=== PATIENT | male | born 1935 | race Caucasian/White ===

== ENCOUNTER 2022-12-22 17:44 | Observation (INO) | payer OTHER ==
--- NOTE | 2022-12-22 17:50 | ERPHSYRPT ---
- History of Present Illness Time Seen by Provider: 12/22/22 17:50 Source: patient, family (Independent history obtained from the patient's spouse) Exam Limitations: no limitations Physician History: This is an 87-year-old white male patient who typically receives his medical care at [facility] under freight car cleaner Dr. Gtz however, he did not want the long wait that he usually has at that facility. The patient and the spouse states they have not been to our emergency department in many years. He presents with increasing shortness of breath over the last week and worse in the last 2 to 3 days. Patient's spouse states that the patient gained 9 pounds since 12/11/2022. Patient's spouse did contact the freight car cleaner office cardiac sonographer and because of the low oxygen saturation levels of mid 80s on room air, the patient's spouse was told to bring the patient to the emergency room. The patient did not want to come. He does admit though that when he is lying still and flat he is not so short of breath. However if he is up and ambulating even 20 feet he feels very short of breath and has to stop. He denies chest pain. He has no pain of any kind per his report. He has not had a fever. He has a mild cough present. Patient and spouse state that he used to be on diuretics (hydrochlorothiazide). However, there was some renal issues that prompted his physicians to stop that medication. Patient does have a history of atrial fibrillation, hyperlipidemia, gastroesophageal reflux disease, COPD, hypertension, anxiety, arthritis, mild dementia and coronary disease (cardiac stents), and he is on Xarelto. Timing/Duration: week(s) (1 week), worse (Worse in the last 2-3 days) Severity of Dyspnea-Max: moderate (With exertion) Severity of Dyspnea-Current: mild (Lying flat) Possible Cause: occasional episodes Modifying Factors: Improves With: exertion (Worsens), lying down (Improves), oxygen (Improves) Associated Symptoms: No chest pain/discomfort Allergies/Adverse Reactions: hydromorphone Allergy (Severe, Verified 12/22/22 17:50) atorvastatin [From Lipitor] Allergy (Verified 12/22/22 17:50) Home Medications: Aspirin EC 81 mg [Ecotrin 81 mg] 81 mg PO DAILY 02/02/13 [History] Famotidine [Pepcid] 40 mg PO HS 02/02/13 [History] Magnesium Oxide 400 mg [Mag-Ox 400] 400 mg PO BID 02/02/13 [History] Omeprazole [Prilosec] 40 mg PO DAILY 02/02/13 [History] Buspirone HCl 5 mg [Buspar 5 mg] 10 mg PO BID 02/03/13 [History] Fluocinonide/Emollient Base [Fluocinonide-Emol 0.05% Cream] 1 applic TOP DAILY PRN PRN 02/03/13 [History] Amlodipine Besylate [Norvasc] 1 tab PO DAILY 12/22/22 [History] Carvedilol [Coreg ] 1 tab PO BID 12/22/22 [History] Diclofenac Sodium [Voltaren Arthritis Pain] 2 g TOP QID 12/22/22 [History] Donepezil HCl 10 mg [Aricept 10 MG] 1 tab PO DAILY 12/22/22 [History] Furosemide [Lasix] 1 tab PO DAILY 12/22/22 [History] Isosorbide Mononitrate 60 mg [Imdur 60MG] 1 tab PO DAILY 12/22/22 [History] Lovastatin 1 tab PO HS 12/22/22 [History] Nitroglycerin 0.4 mg Tablet [Nitrostat 0.4 MG Tablet] 1 tab PO Q5MIN PRN MR X 3 PRN 12/22/22 [History] Rivaroxaban [Xarelto] 1 tab PO EVENING MEAL 12/22/22 [History] Tamsulosin HCl 0.4 mg [Flomax 0.4 MG] 1 cap PO DAILY 12/22/22 [History] Hx Influenza Vaccination/Date Given: Yes Hx Pneumococcal Vaccination/Date Given: Yes Travel Risk - International Travel Have you traveled outside of the country in past 3 weeks: No - Coronavirus Screening Are you exhibiting any of the following symptoms?: Yes Symptoms: Cough: New Onset, Shortness of Breath Close contact with a COVID-19 positive Pt in past 14-21 Days: No - Review of Systems Constitutional: No Symptoms Eyes: No Symptoms Ears, Nose, & Throat: No Symptoms Respiratory: Cough, Dyspnea on Exertion (BROWN) Cardiac: No Symptoms, No Chest Pain Abdominal/Gastrointestinal: No Symptoms Genitourinary Symptoms: No Symptoms Musculoskeletal: No Symptoms Skin: No Symptoms Neurological: No Symptoms Psychological: No Symptoms Endocrine: No Symptoms Hematologic/Lymphatic: No Symptoms Immunological/Allergic: No Symptoms All Other Systems: Reviewed and Negative - Past Medical History Pertinent Past Medical History: Yes Neurological History: No Pertinent History ENT History: Cataracts Cardiac History: Hypertension Respiratory History: No Pertinent History Endocrine Medical History: No Pertinent History Musculoskeletal History: Osteoarthritis GI Medical History: Diverticulosis, GERD History: No Pertinent History Psycho-Social History: Depression Male Reproductive Disorders: Prostate Problems Other Medical History: Watching kidney function due to changes in medication. See chart for history - Past Surgical History Past Surgical History: Yes Neuro Surgical History: No Pertinent History Cardiac: Cardiac Catheterization, Cardiac Stent Respiratory: No Pertinent History Gastrointestinal: Appendectomy, Cholecystectomy Genitourinary: No Pertinent History Musculoskeletal: Orthopedic Surgery Male Surgical History: No Pertinent History Other Surgical History: EGD, COlonoscopy, Bilateral Knee replacement, Back Surgery x2. R carpal tunnel repair, R shoulder repair, R hand trigger finger. - Social History Smoking Status: Former smoker Exposure to second hand smoke: No Drug Use: none - Nursing Vital Signs Nursing Vital Signs: Initial Vital Signs Temperature 97.8 F 12/22/22 17:52 Pulse Rate 72 12/22/22 17:52 Respiratory Rate 21 12/22/22 17:52 Blood Pressure 128/64 12/22/22 17:52 O2 Sat by Pulse Oximetry 95 12/22/22 17:52 Pain Scale Pain Intensity 0 - Physical Exam General Appearance: no apparent distress, alert, anxiety Eye Exam: PERRL/EOMI, eyes nml inspection Ears, Nose, Throat Exam: hearing grossly normal, normal ENT inspection, normal pharynx Neck Exam: normal inspection, non-tender, supple, full range of motion Respiratory Exam: normal breath sounds, lungs clear, airway intact, No chest tenderness, No respiratory distress Cardiovascular/Chest Exam: normal heart sounds, regular rate/rhythm Abdominal/Gastrointestinal Exam: soft, normal bowel sounds, No tenderness Rectal Exam: not done Extremity Exam: non-tender, normal range of motion, normal inspection Neurologic Exam: alert, oriented x 3, cooperative, box fabricator II-XII nml as tested, normal mood/affect, nml cerebellar function, nml station & gait, sensation nml Skin Exam: normal color, warm, dry Lymphatic Exam: No adenopathy SpO2 Interpretation: borderline oxygenation O2 Delivery: Room Air - Course Nursing assessment & vital signs reviewed: Yes EKG Interpreted by Me: RATE (74), A-fib, Left Bundle Branch Block, Other (PVCs. No acute ischemic changes on today's twelve-lead EKG.) Ordered Tests: Active Orders 24 hr Category Date Time Status EKG-ER Only STAT Care 12/22/22 18:57 Active IV Insertion STAT Care 12/22/22 18:57 Active Pulse Oximetry (ED) STAT Care 12/22/22 18:57 Active CHEST 1 VIEW (PORTABLE) Stat Exams 12/22/22 19:09 Completed CBC W DIFF Stat Lab 12/22/22 17:55 Completed CMP Stat Lab 12/22/22 17:55 Completed NT PRO BNPII Stat Lab 12/22/22 17:55 Completed TROPONIN Q4H Lab 12/22/22 17:55 Completed TROPONIN Q4H Lab 12/22/22 22:03 Received TROPONIN Q4H Lab 12/23/22 03:00 Ordered Transfer Order Routine Transfer 12/22/22 Ordered Medication Summary Discontinued Medications Generic Name Dose Route Start Last Admin Trade Name Freq PRN Reason Stop Dose Admin Furosemide 40 mg 12/22/22 20:23 12/22/22 20:28 Furosemide 40 Mg/4 Ml Vial IV 12/22/22 20:24 40 mg STAT ONE Administration Furosemide Confirm 12/22/22 20:27 Furosemide 40 Mg/4 Ml Vial Administered 12/22/22 20:28 Dose 40 mg .ROUTE .STK-MED ONE Ceftriaxone Sodium/Dextrose 1 g in 50 mls @ 100 mls/hr 12/22/22 20:22 12/22/22 20:58 Rocephin 1 Gm-D5w 50 Ml Bag IV 12/22/22 20:51 Infused STAT STA Infusion Ceftriaxone Sodium/Dextrose Confirm 12/22/22 20:27 Rocephin 1 Gm-D5w 50 Ml Bag Administered 12/22/22 20:28 Dose 1 g in 50 mls @ ud IV .STK-MED ONE Lab/Rad Data: Laboratory Result Diagrams 12/22/22 17:55 12/22/22 17:55 Laboratory Results 12/22/22 12/22/22 12/22/22 Range/Units 19:36 17:55 17:55 WBC (4.0-10.5) x10^3/uL RBC (4.1-5.6) x10^6/uL Hgb (12.5-18.0) g/dL Hct (42-50) % MCV (78-100) fL MCH (26-32) pg MCHC (32-36) g/dL RDW (11.5-14.0) % Plt Count (150-450) x10^3/uL MPV (7.5-11.0) fL Gran % (36.0-66.0) % Immature Gran % (Auto) (0.00-0.4) % Nucleat RBC Rel Count (0.00-0.1) % Eos # (Auto) (0-0.5) x10^3/uL Immature Gran # (Auto) (0.00-0.03) x10^3u/L Absolute Lymphs (auto) (1.0-4.6) x10^3/uL Absolute Monos (auto) (0.0-1.3) x10^3/uL Absolute Nucleated RBC (0.00-0.01) x10^3u/L Lymphocytes % (24.0-44.0) % Monocytes % (0.0-12.0) % Eosinophils % (0.00-5.0) % Basophils % (0.0-0.4) % Absolute Granulocytes (1.4-6.9) x10^3/uL Basophils # (0-0.4) x10^3/uL Sodium 140 (137-145) mmol/L Potassium 4.0 (3.5-5.1) mmol/L Chloride 106 (98-107) mmol/L Carbon Dioxide 26 (22-30) mmol/L Anion Gap 12.8 (5-15) MEQ/L BUN 28 H (9-20) mg/dL Creatinine 1.81 H (0.66-1.25) mg/dL Estimated GFR 37.8 ML/MIN Glucose 112 H (74-106) mg/dL Calcium 8.4 (8.4-10.2) mg/dL Total Bilirubin 1.30 (0.2-1.3) mg/dL AST 31 (17-59) U/L ALT 25 (0-50) U/L Alkaline Phosphatase 82 (38-126) U/L Troponin I 0.105 H* (0.000-0.034) ng/mL NT-Pro-B Natriuret Pep 52108 (<300) pg/mL Serum Total Protein 6.1 L (6.3-8.2) g/dL Albumin 3.4 L (3.5-5.0) g/dL Influenza Type A Ag NEGATIVE (NEGATIVE) Influenza Type B Ag NEGATIVE (NEGATIVE) RSV (PCR) NEGATIVE (NEGATIVE) SARS-CoV-2 (PCR) NEGATIVE (NEGATIVE) 12/22/22 Range/Units 17:55 WBC 4.5 (4.0-10.5) x10^3/uL RBC 2.88 L (4.1-5.6) x10^6/uL Hgb 8.6 L (12.5-18.0) g/dL Hct 27.5 L (42-50) % MCV 95.5 (78-100) fL MCH 29.9 (26-32) pg MCHC 31.3 L (32-36) g/dL RDW 14.4 H (11.5-14.0) % Plt Count 234 (150-450) x10^3/uL MPV 9.4 (7.5-11.0) fL Gran % 63.7 (36.0-66.0) % Immature Gran % (Auto) 0.4 (0.00-0.4) % Nucleat RBC Rel Count 0.0 (0.00-0.1) % Eos # (Auto) 0.10 (0-0.5) x10^3/uL Immature Gran # (Auto) 0.02 (0.00-0.03) x10^3u/L Absolute Lymphs (auto) 0.90 L (1.0-4.6) x10^3/uL Absolute Monos (auto) 0.57 (0.0-1.3) x10^3/uL Absolute Nucleated RBC 0.00 (0.00-0.01) x10^3u/L Lymphocytes % 20.2 L (24.0-44.0) % Monocytes % 12.8 H (0.0-12.0) % Eosinophils % 2.2 (0.00-5.0) % Basophils % 0.7 (0.0-0.4) % Absolute Granulocytes 2.83 (1.4-6.9) x10^3/uL Basophils # 0.03 (0-0.4) x10^3/uL Sodium (137-145) mmol/L Potassium (3.5-5.1) mmol/L Chloride (98-107) mmol/L Carbon Dioxide (22-30) mmol/L Anion Gap (5-15) MEQ/L BUN (9-20) mg/dL Creatinine (0.66-1.25) mg/dL Estimated GFR ML/MIN Glucose (74-106) mg/dL Calcium (8.4-10.2) mg/dL Total Bilirubin (0.2-1.3) mg/dL AST (17-59) U/L ALT (0-50) U/L Alkaline Phosphatase (38-126) U/L Troponin I (0.000-0.034) ng/mL NT-Pro-B Natriuret Pep (<300) pg/mL Serum Total Protein (6.3-8.2) g/dL Albumin (3.5-5.0) g/dL Influenza Type A Ag (NEGATIVE) Influenza Type B Ag (NEGATIVE) RSV (PCR) (NEGATIVE) SARS-CoV-2 (PCR) (NEGATIVE) - Progress Progress: improved, re-examined Air Movement: fair Progress Note: 12/22/22 19:36 Chest x-ray was interpreted by me. Patient appears to have bibasilar fluid. There is a small right pleural effusion and a question of fluid versus small infiltrate left base. This patient's medical issue is 1 of high complexity. The level complexity in the work-up performed is based on review of the patient's past medical history, review of the patient's medication list, review the patient's drug allergy list, history of present illness and physical findings on examination. The work-up includes chest x-ray, twelve-lead EKG, BNP, troponin level, CMP and CBC as well as evaluation by respiratory therapy. 12/22/22 21:58 I reviewed the results and interpreted the results of the patient's work-up. The patient has evidence of CHF with decompensation. He became slightly hypoxic during his stay in the emergency room but responded with supplemental oxygen via nasal cannula. The patient has no chest pain. He has elevated troponin levels. Family prefers to be at [facility] for their care. Patient's freight car cleaner is there. I did contact Dr. Murphy, the hospitalist on-call at [facility]. I reviewed the patient history, the work-up performed and the results. He accepts the patient in transfer when a bed becomes available. I did speak with the transfer center and they explained to me that there are no cardiac beds available at this time. They will call us at 10 AM on 12/23/2022 to update us on bed availability. In the interim, I will contact the telehospitalist on at this time and see if they we can place him in observation so he can be monitored on telemetry and telemetry bed becomes available at [facility] for further evaluation and management and higher level care with cardiology intervention. 12/22/22 22:28 I reviewed the patient with our telehospitalist Dr. Andrade. I reviewed the p atient history, physical findings, work-up results chest x-ray results and twelve-lead EKG results. Dr. Andrade agrees to place the patient in observation and diuresis patient. We will repeat labs in the morning. Tomorrow, they will decide whether to keep the patient here and continue care or transfer to [facility] if the bed is available. Blood Culture(s) Obtained: Yes Antibiotics given: Yes Counseled pt/family regarding: lab results, diagnosis, rad results Medical Desision Making - Independent Historian Additional History obtained from: Spouse - Discussion of managment Care discussed with:: hospitalist (At [facility], Dr. Murphy hospitalist on- call this evening) Reviewed:: Test results, Need for additional workup - Diagnostic Testing Diagnostic test were ordered, analyzed, and reviewed by me: Yes Radiological Interpretation: Interpreted by me, Reviewed by me, Teleradiologist Report - Risk of complications The pt has a high risk of morbidity or mortality based on: Decision regarding hospitilization or escalation of hosp level of care - Departure Departure Disposition: Observation Clinical Impression: Decompensated heart failure, Acute on chronic renal failure, Hypoxia, Elevated troponin Condition: Fair Critical Care Time: Yes Critical Care Time(excluding separately billable procedures): Critical 30-74 mins (45) Referrals: MARYAM HARRIS MD [Primary Care Provider] - Follow up/PCP as directed
[2022-12-22 19:04] LABS: Absolute Neutrophil Ct (ANC) 2.83 x10^3/uL (1.4-6.9); BASOPHIL % 0.7 % (0.0-0.4); Basophil (Absolute #) 0.03 x10^3/uL (0-0.4); Eosinophil % 2.2 % (0.00-5.0); Hematocrit 27.5 % (42-50); Hemoglobin 8.6 g/dL (12.5-18.0); IMMATURE GRAN # 0.02 x10^3u/L (0.00-0.03); IMMATURE GRAN % 0.4 % (0.00-0.4); Lymphocytes % 20.2 % (24.0-44.0); Mean Cell Volume 95.5 fL (78-100); Mean Corpuscular Hemoglobin 29.9 pg (26-32); Mean Corpuscular Hgb Concent. 31.3 g/dL (32-36); Mean Platelet Volume 9.4 fL (7.5-11.0); Monocyte (Absolute #) 0.57 x10^3/uL (0.0-1.3); Monocytes % 12.8 % (0.0-12.0); Neutrophil % 63.7 % (36.0-66.0); Platelet Count 234 x10^3/uL (150-450); Red Blood Count 2.88 x10^6/uL (4.1-5.6); Red Cell Distribution Width 14.4 % (11.5-14.0); White Blood Count 4.5 x10^3/uL (4.0-10.5)
[2022-12-22 19:28] LABS: ALBUMIN 3.4 g/dL (3.5-5.0); ANION GAP 12.8 MEQ/L (5-15); BILIRUBIN,TOTAL 1.3 mg/dL (0.2-1.3); Calcium 8.4 mg/dL (8.4-10.2); Creatinine 1 1.81 mg/dL (0.66-1.25); EST GLOMERULAR FILTRATION RATE 37.8 ML/MIN; Total Protein 6.1 g/dL (6.3-8.2)
[2022-12-22 20:11] LABS: TROPONIN 0.105 ng/mL (0.000-0.034)
[2022-12-22 20:14] LABS: INFLUENZA A NEGATIVE (NEGATIVE); INFLUENZA B NEGATIVE (NEGATIVE); RESPIRATORY SYNCTIAL VIRUS NEGATIVE (NEGATIVE); SARS-CoV-2 Xpert Express NEGATIVE (NEGATIVE)
[2022-12-22] MEDS ORDERED: ROCEPHIN 1 Gm-D5w 50 ml Bag** 1 G/50 ML IVPB IV STA (20:22)
[2022-12-22] MEDS ORDERED: Lasix 40 MG/4 ML IV ONE (20:23)
[2022-12-22] MEDS ORDERED: Lasix 40 MG/4 ML ONE (20:27)
[2022-12-22] MEDS ORDERED: ROCEPHIN 1 Gm-D5w 50 ml Bag** 1 G/50 ML IVPB IV ONE (20:27)
--- NOTE | 2022-12-22 21:06 | XRAY ---
Indication: Short of breath. Comparison: None Portable apical lordotic chest demonstrates cardiomegaly, pulmonary edema, and small bibasilar effusions favoring cardiac decompensation/CHF. Superimposed pneumonia not completely excluded. Bony thorax intact with osteopenia and degenerative changes.
[2022-12-22] MEDS ORDERED: Zofran 4 MG/2 ML VIAL IV PRN (22:45)
[2022-12-22] MEDS ORDERED: TYLENOL 325 MG PO PRN (22:45)
[2022-12-22] MEDS ORDERED: [UNRECOGNIZED DRUG - OTHER] TOP PRN (23:04)
[2022-12-22] MEDS ORDERED: FLUOCINONIDE TOP PRN (23:04)
--- NOTE | 2022-12-22 23:23 | PCM.HP ---
History of Present Illness - Chief Complaint Chief Complaint: Shortness of breath History of Present Illness: is a 87 year old male with CAD, heart failure, COPD, atrial fibrillation who presents with one month of progressive dyspnea. He has shortness of breath with exertion and noticed it is worse laying down as well. No chest pain. Mild edema in the legs as well. He has had admissions in the past for CHF exacerbations but his last was over 6 months ago. Denies other symptoms such as nausea, vomiting, diarrhea, fevers. - Review of Systems Constitutional: No Fever, No Chills Eyes: No Symptoms Ears, Nose, & Throat: No Symptoms Respiratory: Short Of Breath, No Cough Cardiac: Edema, Orthopnea, No Chest Pain, No Syncope Abdominal/Gastrointestinal: No Abdominal Pain, No Nausea, No Vomiting, No Diarrhea Genitourinary Symptoms: No Dysuria Musculoskeletal: No Back Pain, No Neck Pain Skin: No Rash Neurological: No Dizziness, No Focal Weakness, No Sensory Changes Psychological: No Symptoms Endocrine: No Symptoms Hematologic/Lymphatic: No Symptoms Immunological/Allergic: No Symptoms Medications & Allergies Home Medications: Home Medication List Aspirin EC 81 mg [Ecotrin 81 mg] 81 mg PO DAILY 02/02/13 [History Confirmed 12/22/22] Famotidine [Pepcid] 40 mg PO HS 02/02/13 [History Confirmed 12/22/22] Magnesium Oxide 400 mg [Mag-Ox 400] 400 mg PO BID 02/02/13 [History Confirmed 12/22/22] Omeprazole [Prilosec] 40 mg PO DAILY 02/02/13 [History Confirmed 12/22/22] Buspirone HCl 5 mg [Buspar 5 mg] 10 mg PO BID 02/03/13 [History Confirmed 12/22/22] Fluocinonide/Emollient Base [Fluocinonide-Emol 0.05% Cream] 1 applic TOP DAILY PRN PRN 02/03/13 [History Confirmed 12/22/22] Amlodipine Besylate [Norvasc] 1 tab PO DAILY 12/22/22 [History Confirmed 12/22/22] Carvedilol [Coreg ] 1 tab PO BID 12/22/22 [History Confirmed 12/22/22] Diclofenac Sodium [Voltaren Arthritis Pain] 2 g TOP QID 12/22/22 [History Confirmed 12/22/22] Donepezil HCl 10 mg [Aricept 10 MG] 1 tab PO DAILY 12/22/22 [History Confirmed 12/22/22] Furosemide [Lasix] 1 tab PO DAILY 12/22/22 [History Confirmed 12/22/22] Isosorbide Mononitrate 60 mg [Imdur 60MG] 1 tab PO DAILY 12/22/22 [History Confirmed 12/22/22] Lovastatin 1 tab PO HS 12/22/22 [History Confirmed 12/22/22] Nitroglycerin 0.4 mg Tablet [Nitrostat 0.4 MG Tablet] 1 tab PO Q5MIN PRN MR X 3 PRN 12/22/22 [History Confirmed 12/22/22] Rivaroxaban [Xarelto] 1 tab PO EVENING MEAL 12/22/22 [History Confirmed 12/22/22] Tamsulosin HCl 0.4 mg [Flomax 0.4 MG] 1 cap PO DAILY 12/22/22 [History Confirmed 12/22/22] Allergies/Adverse Reactions: Allergies Allergy/AdvReac Type Severity Reaction Status Date / Time hydromorphone Allergy Severe Verified 12/22/22 17:50 atorvastatin [From Lipitor] Allergy Verified 12/22/22 17:50 - Past Medical History Past Medical History: Yes Neurological History: No Pertinent History ENT History: Cataracts Cardiac History: Hypertension Respiratory History: No Pertinent History Endocrine Medical History: No Pertinent History Musculoskelatal History: Osteoarthritis GI Medical History: Diverticulosis, GERD History: No Pertinent History Pyscho-Social History: Depression Male Reproductive Disorders: Prostate Problems Comment: Watching kidney function due to changes in medication. See chart for history - Past Surgical History Past Surgical History: Yes Neuro Surgical History: No Pertinent History Cardiac History: Cardiac Catheterization, Cardiac Stent Respiratory Surgery: No Pertinent History GI Surgical History: Appendectomy, Cholecystectomy Genitourinary Surgical Hx: No Pertinent History Musculskeletal Surgical Hx: Orthopedic Surgery Male Surgical History: No Pertinent History Other Surgical History: EGD, COlonoscopy, Bilateral Knee replacement, Back Surgery x2. R carpal tunnel repair, R shoulder repair, R hand trigger finger. - Social History Smoking Status: Former smoker Exposure to second hand smoke: No Alcohol: None Drug Use: none - Physical Exam Vital Signs: Vital Signs - 24 hr Temp Pulse Resp BP BP Pulse Ox 12/22/22 22:00 72 23 131/78 94 L 12/22/22 21:31 73 20 155/78 94 L 12/22/22 21:00 68 19 139/66 93 L 12/22/22 20:30 67 18 140/74 95 12/22/22 20:00 63 18 131/67 95 12/22/22 19:30 65 20 129/68 96 12/22/22 19:16 68 18 125/76 96 12/22/22 19:10 89 L 12/22/22 19:01 63 19 125/78 95 12/22/22 18:30 68 22 114/56 92 L 12/22/22 18:00 68 20 128/64 91 L 12/22/22 17:52 97.8 F 72 21 128/64 95 General Appearance: no apparent distress, alert Neurologic Exam: alert, oriented x 3, cooperative, normal mood/affect, nml cerebellar function, nml station & gait, sensation nml, No motor deficits Eye Exam: PERRL/EOMI, eyes nml inspection Ears, Nose, Throat Exam: normal ENT inspection, TMs normal, pharynx normal, moist mucous membranes Neck Exam: normal inspection, non-tender, supple, full range of motion Respiratory Exam: normal breath sounds, lungs clear, No respiratory distress Cardiovascular Exam: regular rate/rhythm, normal heart sounds, normal peripheral pulses Gastrointestinal/Abdomen Exam: soft, normal bowel sounds, No tenderness, No mass Back Exam: normal inspection, normal range of motion, No CVA tenderness, No vertebral tenderness Extremity Exam: normal inspection, normal range of motion, pelvis stable Skin Exam: normal color, warm, dry, No rash Lymphatic Exam: No adenopathy Results - Labs Lab/Micro Results: Lab Results-Last 24 Hours 12/22/22 12/22/22 12/22/22 Range/Units 17:55 17:55 17:55 WBC 4.5 (4.0-10.5) x10^3/uL RBC 2.88 L (4.1-5.6) x10^6/uL Hgb 8.6 L (12.5-18.0) g/dL Hct 27.5 L (42-50) % MCV 95.5 (78-100) fL MCH 29.9 (26-32) pg MCHC 31.3 L (32-36) g/dL RDW 14.4 H (11.5-14.0) % Plt Count 234 (150-450) x10^3/uL MPV 9.4 (7.5-11.0) fL Gran % 63.7 (36.0-66.0) % Immature Gran % (Auto) 0.4 (0.00-0.4) % Nucleat RBC Rel Count 0.0 (0.00-0.1) % Eos # (Auto) 0.10 (0-0.5) x10^3/uL Immature Gran # (Auto) 0.02 (0.00-0.03) x10^3u/L Absolute Lymphs (auto) 0.90 L (1.0-4.6) x10^3/uL Absolute Monos (auto) 0.57 (0.0-1.3) x10^3/uL Absolute Nucleated RBC 0.00 (0.00-0.01) x10^3u/L Lymphocytes % 20.2 L (24.0-44.0) % Monocytes % 12.8 H (0.0-12.0) % Eosinophils % 2.2 (0.00-5.0) % Basophils % 0.7 (0.0-0.4) % Absolute Granulocytes 2.83 (1.4-6.9) x10^3/uL Basophils # 0.03 (0-0.4) x10^3/uL Sodium 140 (137-145) mmol/L Potassium 4.0 (3.5-5.1) mmol/L Chloride 106 (98-107) mmol/L Carbon Dioxide 26 (22-30) mmol/L Anion Gap 12.8 (5-15) MEQ/L BUN 28 H (9-20) mg/dL Creatinine 1.81 H (0.66-1.25) mg/dL Estimated GFR 37.8 ML/MIN Glucose 112 H (74-106) mg/dL Calcium 8.4 (8.4-10.2) mg/dL Total Bilirubin 1.30 (0.2-1.3) mg/dL AST 31 (17-59) U/L ALT 25 (0-50) U/L Alkaline Phosphatase 82 (38-126) U/L Troponin I 0.105 H* (0.000-0.034) ng/mL NT-Pro-B Natriuret Pep 09237 (<300) pg/mL Serum Total Protein 6.1 L (6.3-8.2) g/dL Albumin 3.4 L (3.5-5.0) g/dL Influenza Type A Ag (NEGATIVE) Influenza Type B Ag (NEGATIVE) RSV (PCR) (NEGATIVE) SARS-CoV-2 (PCR) (NEGATIVE) 12/22/22 12/22/22 Range/Units 19:36 22:03 WBC (4.0-10.5) x10^3/uL RBC (4.1-5.6) x10^6/uL Hgb (12.5-18.0) g/dL Hct (42-50) % MCV (78-100) fL MCH (26-32) pg MCHC (32-36) g/dL RDW (11.5-14.0) % Plt Count (150-450) x10^3/uL MPV (7.5-11.0) fL Gran % (36.0-66.0) % Immature Gran % (Auto) (0.00-0.4) % Nucleat RBC Rel Count (0.00-0.1) % Eos # (Auto) (0-0.5) x10^3/uL Immature Gran # (Auto) (0.00-0.03) x10^3u/L Absolute Lymphs (auto) (1.0-4.6) x10^3/uL Absolute Monos (auto) (0.0-1.3) x10^3/uL Absolute Nucleated RBC (0.00-0.01) x10^3u/L Lymphocytes % (24.0-44.0) % Monocytes % (0.0-12.0) % Eosinophils % (0.00-5.0) % Basophils % (0.0-0.4) % Absolute Granulocytes (1.4-6.9) x10^3/uL Basophils # (0-0.4) x10^3/uL Sodium (137-145) mmol/L Potassium (3.5-5.1) mmol/L Chloride (98-107) mmol/L Carbon Dioxide (22-30) mmol/L Anion Gap (5-15) MEQ/L BUN (9-20) mg/dL Creatinine (0.66-1.25) mg/dL Estimated GFR ML/MIN Glucose (74-106) mg/dL Calcium (8.4-10.2) mg/dL Total Bilirubin (0.2-1.3) mg/dL AST (17-59) U/L ALT (0-50) U/L Alkaline Phosphatase (38-126) U/L Troponin I 0.140 H* (0.000-0.034) ng/mL NT-Pro-B Natriuret Pep (<300) pg/mL Serum Total Protein (6.3-8.2) g/dL Albumin (3.5-5.0) g/dL Influenza Type A Ag NEGATIVE (NEGATIVE) Influenza Type B Ag NEGATIVE (NEGATIVE) RSV (PCR) NEGATIVE (NEGATIVE) SARS-CoV-2 (PCR) NEGATIVE (NEGATIVE) - Radiology Impressions Radiology Exams & Impressions: Radiology Procedures Category Date Time Status CHEST 1 VIEW (PORTABLE) Stat Exams 12/22/22 19:09 Completed - Other Procedures and Tests Respiratory Therapy 12/22/22 22:45 EKG REPEAT IN AM Oxygen Nasal Cannula 2 lpm Respiratory Therapy Consult ONCE Assessment/Plan (1) Decompensated heart failure Current Visit: Yes Status: Acute Assessment & Plan: 1. Lasix 40 mg IV BID 2. [facility] continue home cardiac medications (BB, statin, ASA) Code(s): I50.9 - HEART FAILURE, UNSPECIFIED (2) Hypoxia Current Visit: Yes Status: Acute Assessment & Plan: Likely related to effusion from heart failure. O2 as needed. Diuresis with lasix 40 mg IV BID Code(s): R09.02 - HYPOXEMIA (3) Anemia Current Visit: Yes Status: Acute Assessment & Plan: No baseline. Suspect due to anemia of chronic disease / renal disease. Denies bloody stools or dark stools. - has prior lab work per but went home tonight. Can check in the morning. Code(s): D64.9 - ANEMIA, UNSPECIFIED Telemedicine Encounter - Telemedicine Encounter Telemedicine Encounter: The entirety of this encounter was performed via Telemedicine"
[2022-12-23 04:05] LABS: ALBUMIN 3.5 g/dL (3.5-5.0); BILIRUBIN,TOTAL 1.4 mg/dL (0.2-1.3); Calcium 8.6 mg/dL (8.4-10.2); Creatinine 1 1.75 mg/dL (0.66-1.25); EST GLOMERULAR FILTRATION RATE 39.3 ML/MIN; Potassium 4.2 mmol/L (3.5-5.1); Total Protein 6.1 g/dL (6.3-8.2)
[2022-12-23 05:35] LABS: Absolute Neutrophil Ct (ANC) 4.71 x10^3/uL (1.4-6.9); BASOPHIL % 0.6 % (0.0-0.4); Basophil (Absolute #) 0.04 x10^3/uL (0-0.4); Eosinophil % 1.7 % (0.00-5.0); Eosinophil (Absolute #) 0.11 x10^3/uL (0-0.5); Hematocrit 29.3 % (42-50); Hemoglobin 9.2 g/dL (12.5-18.0); IMMATURE GRAN # 0.02 x10^3u/L (0.00-0.03); IMMATURE GRAN % 0.3 % (0.00-0.4); Lymphocyte (Absolute #) 0.73 x10^3/uL (1.0-4.6); Lymphocytes % 11.6 % (24.0-44.0); Mean Cell Volume 95.1 fL (78-100); Mean Corpuscular Hemoglobin 29.9 pg (26-32); Mean Corpuscular Hgb Concent. 31.4 g/dL (32-36); Mean Platelet Volume 9.7 fL (7.5-11.0); Monocyte (Absolute #) 0.69 x10^3/uL (0.0-1.3); Neutrophil % 74.8 % (36.0-66.0); Platelet Count 263 x10^3/uL (150-450); Red Blood Count 3.08 x10^6/uL (4.1-5.6); Red Cell Distribution Width 14.3 % (11.5-14.0); White Blood Count 6.3 x10^3/uL (4.0-10.5)
--- NOTE | 2022-12-23 05:42 | PCM.NOTE ---
Date and Time: 12/23/22 0534 Subjective Assessment: Mr. Pagan is an 87 year old male with a pmhx of CAD, CHF, COPD, HLD, GERD, Anxiety, dementia, COPD, and AFIB (xarelto/coreg), who presented to ER 12/22/22 with c/o progressive dyspnea with the onset of one month ago with worsening over the past two days and 9lb weight gain, admitted for CHF with decompensation. In ER workup included chest x-ray, twelve-lead EKG, BNP, troponin level, CMP and CBC as well as evaluation by respiratory therapy with findings of decompensated CHF and elevated troponins, acute on chronic renal failure, as well as hypoxia. Patient to be transferred to [place] when a bed is available per pt request as the patient's court stenographer Dr. Madison is there. OBJECTIVE DATA Vital Signs: Vital Signs - 24 hr Temp Pulse Resp BP BP Pulse Ox 12/23/22 05:12 93 L 12/23/22 04:44 90 L 12/22/22 23:21 96.9 F 75 18 143/65 92 L 12/22/22 23:00 84 18 92 L 12/22/22 22:00 72 23 131/78 94 L 12/22/22 21:31 73 20 155/78 94 L 12/22/22 21:00 68 19 139/66 93 L 12/22/22 20:30 67 18 140/74 95 12/22/22 20:00 63 18 131/67 95 12/22/22 19:30 65 20 129/68 96 12/22/22 19:16 68 18 125/76 96 12/22/22 19:10 89 L 12/22/22 19:01 63 19 125/78 95 12/22/22 18:30 68 22 114/56 92 L 12/22/22 18:00 68 20 128/64 91 L 12/22/22 17:52 97.8 F 72 21 128/64 95 Pain Assessment - Last Documented Pain Intensity 0 Intake and Output: Intake & Output 12/20/22 12/21/22 12/22/22 12/23/22 11:59 11:59 11:59 11:59 Output Total 1325 Balance -1325 Weight 83.7 kg Lab Results: Lab Results-Last 24 Hours 12/22/22 12/22/22 12/22/22 Range/Units 17:55 17:55 17:55 WBC 4.5 (4.0-10.5) x10^3/uL RBC 2.88 L (4.1-5.6) x10^6/uL Hgb 8.6 L (12.5-18.0) g/dL Hct 27.5 L (42-50) % MCV 95.5 (78-100) fL MCH 29.9 (26-32) pg MCHC 31.3 L (32-36) g/dL RDW 14.4 H (11.5-14.0) % Plt Count 234 (150-450) x10^3/uL MPV 9.4 (7.5-11.0) fL Gran % 63.7 (36.0-66.0) % Immature Gran % (Auto) 0.4 (0.00-0.4) % Nucleat RBC Rel Count 0.0 (0.00-0.1) % Eos # (Auto) 0.10 (0-0.5) x10^3/uL Immature Gran # (Auto) 0.02 (0.00-0.03) x10^3u/L Absolute Lymphs (auto) 0.90 L (1.0-4.6) x10^3/uL Absolute Monos (auto) 0.57 (0.0-1.3) x10^3/uL Absolute Nucleated RBC 0.00 (0.00-0.01) x10^3u/L Lymphocytes % 20.2 L (24.0-44.0) % Monocytes % 12.8 H (0.0-12.0) % Eosinophils % 2.2 (0.00-5.0) % Basophils % 0.7 (0.0-0.4) % Absolute Granulocytes 2.83 (1.4-6.9) x10^3/uL Basophils # 0.03 (0-0.4) x10^3/uL Sodium 140 (137-145) mmol/L Potassium 4.0 (3.5-5.1) mmol/L Chloride 106 (98-107) mmol/L Carbon Dioxide 26 (22-30) mmol/L Anion Gap 12.8 (5-15) MEQ/L BUN 28 H (9-20) mg/dL Creatinine 1.81 H (0.66-1.25) mg/dL Estimated GFR 37.8 ML/MIN Glucose 112 H (74-106) mg/dL Calcium 8.4 (8.4-10.2) mg/dL Total Bilirubin 1.30 (0.2-1.3) mg/dL AST 31 (17-59) U/L ALT 25 (0-50) U/L Alkaline Phosphatase 82 (38-126) U/L Troponin I 0.105 H* (0.000-0.034) ng/mL NT-Pro-B Natriuret Pep 93063 (<300) pg/mL Serum Total Protein 6.1 L (6.3-8.2) g/dL Albumin 3.4 L (3.5-5.0) g/dL Influenza Type A Ag (NEGATIVE) Influenza Type B Ag (NEGATIVE) RSV (PCR) (NEGATIVE) SARS-CoV-2 (PCR) (NEGATIVE) 12/22/22 12/22/22 12/23/22 Range/Units 19:36 22:03 03:25 WBC (4.0-10.5) x10^3/uL RBC (4.1-5.6) x10^6/uL Hgb (12.5-18.0) g/dL Hct (42-50) % MCV (78-100) fL MCH (26-32) pg MCHC (32-36) g/dL RDW (11.5-14.0) % Plt Count (150-450) x10^3/uL MPV (7.5-11.0) fL Gran % (36.0-66.0) % Immature Gran % (Auto) (0.00-0.4) % Nucleat RBC Rel Count (0.00-0.1) % Eos # (Auto) (0-0.5) x10^3/uL Immature Gran # (Auto) (0.00-0.03) x10^3u/L Absolute Lymphs (auto) (1.0-4.6) x10^3/uL Absolute Monos (auto) (0.0-1.3) x10^3/uL Absolute Nucleated RBC (0.00-0.01) x10^3u/L Lymphocytes % (24.0-44.0) % Monocytes % (0.0-12.0) % Eosinophils % (0.00-5.0) % Basophils % (0.0-0.4) % Absolute Granulocytes (1.4-6.9) x10^3/uL Basophils # (0-0.4) x10^3/uL Sodium (137-145) mmol/L Potassium (3.5-5.1) mmol/L Chloride (98-107) mmol/L Carbon Dioxide (22-30) mmol/L Anion Gap (5-15) MEQ/L BUN (9-20) mg/dL Creatinine (0.66-1.25) mg/dL Estimated GFR ML/MIN Glucose (74-106) mg/dL Calcium (8.4-10.2) mg/dL Total Bilirubin (0.2-1.3) mg/dL AST (17-59) U/L ALT (0-50) U/L Alkaline Phosphatase (38-126) U/L Troponin I 0.140 H* 0.122 H* (0.000-0.034) ng/mL NT-Pro-B Natriuret Pep (<300) pg/mL Serum Total Protein (6.3-8.2) g/dL Albumin (3.5-5.0) g/dL Influenza Type A Ag NEGATIVE (NEGATIVE) Influenza Type B Ag NEGATIVE (NEGATIVE) RSV (PCR) NEGATIVE (NEGATIVE) SARS-CoV-2 (PCR) NEGATIVE (NEGATIVE) 12/23/22 Range/Units 03:25 WBC (4.0-10.5) x10^3/uL RBC (4.1-5.6) x10^6/uL Hgb (12.5-18.0) g/dL Hct (42-50) % MCV (78-100) fL MCH (26-32) pg MCHC (32-36) g/dL RDW (11.5-14.0) % Plt Count (150-450) x10^3/uL MPV (7.5-11.0) fL Gran % (36.0-66.0) % Immature Gran % (Auto) (0.00-0.4) % Nucleat RBC Rel Count (0.00-0.1) % Eos # (Auto) (0-0.5) x10^3/uL Immature Gran # (Auto) (0.00-0.03) x10^3u/L Absolute Lymphs (auto) (1.0-4.6) x10^3/uL Absolute Monos (auto) (0.0-1.3) x10^3/uL Absolute Nucleated RBC (0.00-0.01) x10^3u/L Lymphocytes % (24.0-44.0) % Monocytes % (0.0-12.0) % Eosinophils % (0.00-5.0) % Basophils % (0.0-0.4) % Absolute Granulocytes (1.4-6.9) x10^3/uL Basophils # (0-0.4) x10^3/uL Sodium 141 (137-145) mmol/L Potassium 4.2 (3.5-5.1) mmol/L Chloride 102 (98-107) mmol/L Carbon Dioxide 28 (22-30) mmol/L Anion Gap 15.0 (5-15) MEQ/L BUN 27 H (9-20) mg/dL Creatinine 1.75 H (0.66-1.25) mg/dL Estimated GFR 39.3 ML/MIN Glucose 125 H (74-106) mg/dL Calcium 8.6 (8.4-10.2) mg/dL Total Bilirubin 1.40 H (0.2-1.3) mg/dL AST 28 (17-59) U/L ALT 25 (0-50) U/L Alkaline Phosphatase 93 (38-126) U/L Troponin I (0.000-0.034) ng/mL NT-Pro-B Natriuret Pep 24670 (<300) pg/mL Serum Total Protein 6.1 L (6.3-8.2) g/dL Albumin 3.5 (3.5-5.0) g/dL Influenza Type A Ag (NEGATIVE) Influenza Type B Ag (NEGATIVE) RSV (PCR) (NEGATIVE) SARS-CoV-2 (PCR) (NEGATIVE) Radiology Exams: Radiology Procedures Category Date Time Status CHEST 1 VIEW (PORTABLE) Stat Exams 12/22/22 19:09 Completed
[2022-12-23] MEDS ORDERED: KENALOG 0.1% CREAM 15 GM TOP PRN (07:33)
[2022-12-23] MEDS: ECOTRIN 81 MG PO SCH ×2 (08:56→08:58)
--- NOTE | 2022-12-23 08:56 | PCM.DS ---
Discharge Summary Date of Admission: 12/22/22 22:39 Date of Discharge: 12/23/22 Admitting Physician: LUIS FERNANDO COYLE MD Primary Care Provider: MARYAM HARRIS Allergies Allergies hydromorphone Allergy (Severe, Verified 12/22/22 17:50) atorvastatin [From Lipitor] Allergy (Verified 12/22/22 17:50) Hospital Summary - Hospital Course Hospital Course: Mr. Pagan is an 87 year old male with a pmhx of CAD, CHF, COPD, HLD, GERD, Anxiety, dementia, COPD, and AFIB (xarelto/coreg), who presented to ER 12/22/22 with c/o progressive dyspnea with the onset of one month ago with worsening over the past two days and 9lb weight gain, admitted for CHF with decompensation. In ER workup included chest x-ray, twelve-lead EKG, BNP, troponin level, CMP and CBC as well as evaluation by respiratory therapy with findings of decompensated CHF and elevated troponins, acute on chronic renal failure, as well as hypoxia. Patient to be transferred to [place] when a bed is available per pt request as the patient's advertising solicitor Dr. Madison is there. - Vitals & Intake/Output Vital Signs: Vital Signs Temperature 96.9 F 12/23/22 07:45 Pulse Rate 75 12/23/22 07:45 Respiratory Rate 12 12/23/22 08:00 Blood Pressure 135/65 12/23/22 07:45 O2 Sat by Pulse Oximetry 93 L 12/23/22 08:12 Intake & Output: Intake & Output 12/20/22 12/21/22 12/22/22 12/23/22 11:59 11:59 11:59 11:59 Output Total 1325 Balance -1325 Weight 83.7 kg - Lab Result Diagrams: 12/23/22 03:25 12/23/22 03:25 Lab Results-Last 24 Hrs: Lab Results-Last 24 Hours 12/22/22 12/22/22 12/22/22 Range/Units 17:55 17:55 17:55 WBC 4.5 (4.0-10.5) x10^3/uL RBC 2.88 L (4.1-5.6) x10^6/uL Hgb 8.6 L (12.5-18.0) g/dL Hct 27.5 L (42-50) % MCV 95.5 (78-100) fL MCH 29.9 (26-32) pg MCHC 31.3 L (32-36) g/dL RDW 14.4 H (11.5-14.0) % Plt Count 234 (150-450) x10^3/uL MPV 9.4 (7.5-11.0) fL Gran % 63.7 (36.0-66.0) % Immature Gran % (Auto) 0.4 (0.00-0.4) % Nucleat RBC Rel Count 0.0 (0.00-0.1) % Eos # (Auto) 0.10 (0-0.5) x10^3/uL Immature Gran # (Auto) 0.02 (0.00-0.03) x10^3u/L Absolute Lymphs (auto) 0.90 L (1.0-4.6) x10^3/uL Absolute Monos (auto) 0.57 (0.0-1.3) x10^3/uL Absolute Nucleated RBC 0.00 (0.00-0.01) x10^3u/L Lymphocytes % 20.2 L (24.0-44.0) % Monocytes % 12.8 H (0.0-12.0) % Eosinophils % 2.2 (0.00-5.0) % Basophils % 0.7 (0.0-0.4) % Absolute Granulocytes 2.83 (1.4-6.9) x10^3/uL Basophils # 0.03 (0-0.4) x10^3/uL Sodium 140 (137-145) mmol/L Potassium 4.0 (3.5-5.1) mmol/L Chloride 106 (98-107) mmol/L Carbon Dioxide 26 (22-30) mmol/L Anion Gap 12.8 (5-15) MEQ/L BUN 28 H (9-20) mg/dL Creatinine 1.81 H (0.66-1.25) mg/dL Estimated GFR 37.8 ML/MIN Glucose 112 H (74-106) mg/dL Calcium 8.4 (8.4-10.2) mg/dL Total Bilirubin 1.30 (0.2-1.3) mg/dL AST 31 (17-59) U/L ALT 25 (0-50) U/L Alkaline Phosphatase 82 (38-126) U/L Troponin I 0.105 H* (0.000-0.034) ng/mL NT-Pro-B Natriuret Pep 63998 (<300) pg/mL Serum Total Protein 6.1 L (6.3-8.2) g/dL Albumin 3.4 L (3.5-5.0) g/dL Influenza Type A Ag (NEGATIVE) Influenza Type B Ag (NEGATIVE) RSV (PCR) (NEGATIVE) SARS-CoV-2 (PCR) (NEGATIVE) 12/22/22 12/22/22 12/23/22 Range/Units 19:36 22:03 03:25 WBC (4.0-10.5) x10^3/uL RBC (4.1-5.6) x10^6/uL Hgb (12.5-18.0) g/dL Hct (42-50) % MCV (78-100) fL MCH (26-32) pg MCHC (32-36) g/dL RDW (11.5-14.0) % Plt Count (150-450) x10^3/uL MPV (7.5-11.0) fL Gran % (36.0-66.0) % Immature Gran % (Auto) (0.00-0.4) % Nucleat RBC Rel Count (0.00-0.1) % Eos # (Auto) (0-0.5) x10^3/uL Immature Gran # (Auto) (0.00-0.03) x10^3u/L Absolute Lymphs (auto) (1.0-4.6) x10^3/uL Absolute Monos (auto) (0.0-1.3) x10^3/uL Absolute Nucleated RBC (0.00-0.01) x10^3u/L Lymphocytes % (24.0-44.0) % Monocytes % (0.0-12.0) % Eosinophils % (0.00-5.0) % Basophils % (0.0-0.4) % Absolute Granulocytes (1.4-6.9) x10^3/uL Basophils # (0-0.4) x10^3/uL Sodium (137-145) mmol/L Potassium (3.5-5.1) mmol/L Chloride (98-107) mmol/L Carbon Dioxide (22-30) mmol/L Anion Gap (5-15) MEQ/L BUN (9-20) mg/dL Creatinine (0.66-1.25) mg/dL Estimated GFR ML/MIN Glucose (74-106) mg/dL Calcium (8.4-10.2) mg/dL Total Bilirubin (0.2-1.3) mg/dL AST (17-59) U/L ALT (0-50) U/L Alkaline Phosphatase (38-126) U/L Troponin I 0.140 H* 0.122 H* (0.000-0.034) ng/mL NT-Pro-B Natriuret Pep (<300) pg/mL Serum Total Protein (6.3-8.2) g/dL Albumin (3.5-5.0) g/dL Influenza Type A Ag NEGATIVE (NEGATIVE) Influenza Type B Ag NEGATIVE (NEGATIVE) RSV (PCR) NEGATIVE (NEGATIVE) SARS-CoV-2 (PCR) NEGATIVE (NEGATIVE) 12/23/22 12/23/22 Range/Units 03:25 03:25 WBC 6.3 (4.0-10.5) x10^3/uL RBC 3.08 L (4.1-5.6) x10^6/uL Hgb 9.2 L (12.5-18.0) g/dL Hct 29.3 L (42-50) % MCV 95.1 (78-100) fL MCH 29.9 (26-32) pg MCHC 31.4 L (32-36) g/dL RDW 14.3 H (11.5-14.0) % Plt Count 263 (150-450) x10^3/uL MPV 9.7 (7.5-11.0) fL Gran % 74.8 H (36.0-66.0) % Immature Gran % (Auto) 0.3 (0.00-0.4) % Nucleat RBC Rel Count 0.0 (0.00-0.1) % Eos # (Auto) 0.11 (0-0.5) x10^3/uL Immature Gran # (Auto) 0.02 (0.00-0.03) x10^3u/L Absolute Lymphs (auto) 0.73 L (1.0-4.6) x10^3/uL Absolute Monos (auto) 0.69 (0.0-1.3) x10^3/uL Absolute Nucleated RBC 0.00 (0.00-0.01) x10^3u/L Lymphocytes % 11.6 L (24.0-44.0) % Monocytes % 11.0 (0.0-12.0) % Eosinophils % 1.7 (0.00-5.0) % Basophils % 0.6 (0.0-0.4) % Absolute Granulocytes 4.71 (1.4-6.9) x10^3/uL Basophils # 0.04 (0-0.4) x10^3/uL Sodium 141 (137-145) mmol/L Potassium 4.2 (3.5-5.1) mmol/L Chloride 102 (98-107) mmol/L Carbon Dioxide 28 (22-30) mmol/L Anion Gap 15.0 (5-15) MEQ/L BUN 27 H (9-20) mg/dL Creatinine 1.75 H (0.66-1.25) mg/dL Estimated GFR 39.3 ML/MIN Glucose 125 H (74-106) mg/dL Calcium 8.6 (8.4-10.2) mg/dL Total Bilirubin 1.40 H (0.2-1.3) mg/dL AST 28 (17-59) U/L ALT 25 (0-50) U/L Alkaline Phosphatase 93 (38-126) U/L Troponin I (0.000-0.034) ng/mL NT-Pro-B Natriuret Pep 65919 (<300) pg/mL Serum Total Protein 6.1 L (6.3-8.2) g/dL Albumin 3.5 (3.5-5.0) g/dL Influenza Type A Ag (NEGATIVE) Influenza Type B Ag (NEGATIVE) RSV (PCR) (NEGATIVE) SARS-CoV-2 (PCR) (NEGATIVE) - Radiology Exams Ordered Rad Exams-Entire Visit: Radiology Procedures Category Date Time Status CHEST 1 VIEW (PORTABLE) Stat Exams 12/22/22 19:09 Completed - Procedures and Test Procedures and Tests throughout Hospitalization: Therapy Orders & Screens 12/22/22 22:45 EKG REPEAT IN AM Comment: Oxygen Nasal Cannula 2 lpm Comment: Respiratory Therapy Consult ONCE Comment: Reason For Exam: Discharge Exam General Appearance: no apparent distress Neurologic Exam: alert, oriented x 3, cooperative Eye Exam: PERRL Ears, Nose, Throat Exam: normal ENT inspection Neck Exam: normal inspection Respiratory Exam: crackles/rales (fine crackles bilat) Cardiovascular Exam: regular rate/rhythm Gastrointestinal/Abdomen Exam: soft, normal bowel sounds Male Genitalia Exam: deferred Rectal Exam: deferred Back Exam: normal inspection Extremity Exam: normal inspection Final Diagnosis/Problem List - Final Discharge Diagnosis/Problem (1) Decompensated heart failure Current Visit: Yes Status: Acute Assessment & Plan: 1. Lasix 40 mg IV BID 2. [facility]the[facility] continue home cardiac medications (BB, [place]in, [place] [id number] -No previous ECHO in chart -Patient to be transferred to [place] for eval per pt request Code(s): I50.9 - HEART FAILURE, UNSPECIFIED (2) Acute on chronic renal failure Current Visit: Yes Status: Acute Code(s): N17.9 - ACUTE KIDNEY FAILURE, UNSPECIFIED; N18.9 - CHRONIC KIDNEY DISEASE, UNSPECIFIED (3) Anemia Current Visit: Yes Status: Acute Assessment & Plan: No baseline. Suspect due to anemia of chronic disease / renal disease. Denies bloody stools or dark stools. Code(s): D64.9 - ANEMIA, UNSPECIFIED (4) Elevated troponin Current Visit: Yes Status: Acute Assessment & Plan: -Patient being transferred to [place] for evaluation per pt request Code(s): R77.8 - OTHER SPECIFIED ABNORMALITIES OF PLASMA PROTEINS (5) Hypoxia Current Visit: Yes Status: Acute Assessment & Plan: Likely related to effusion from heart failure. O2 as needed. Diuresis with lasix 40 mg IV BID -On baseline RA with spo2@ 93% Code(s): R09.02 - HYPOXEMIA - Discharge Disposition: DC TO [facility] Prescriptions: New Furosemide 40 mg/4 ml [Lasix 40 MG/4 ML] 40 mg IV BID DIURETIC Ondansetron HCl 4 mg/2 ml [Zofran 4 MG/2 ML VIAL] 4 mg IV Q6H PRN PRN PRN Reason: Nausea/Vomiting Continue Famotidine [Pepcid] 40 mg PO HS Aspirin EC 81 mg [Ecotrin 81 mg] 81 mg PO DAILY Omeprazole [Prilosec] 40 mg PO DAILY Magnesium Oxide 400 mg [Mag-Ox 400] 400 mg PO BID Buspirone HCl 5 mg [Buspar 5 mg] 10 mg PO BID Fluocinonide/Emollient Base [Fluocinonide-Emol 0.05% Cream] 1 applic TOP DAILY PRN PRN PRN Reason: Pain Rivaroxaban [Xarelto] 1 tab PO EVENING MEAL Donepezil HCl 10 mg [Aricept 10 MG] 1 tab PO DAILY Tamsulosin HCl 0.4 mg [Flomax 0.4 MG] 1 cap PO DAILY Carvedilol [Coreg ] 1 tab PO BID Amlodipine Besylate [Norvasc] 1 tab PO DAILY Isosorbide Mononitrate 60 mg [Imdur 60MG] 1 tab PO DAILY Diclofenac Sodium [Voltaren Arthritis Pain] 2 g TOP QID Lovastatin 1 tab PO HS Nitroglycerin 0.4 mg Tablet [Nitrostat 0.4 MG Tablet] 1 tab PO Q5MIN PRN MR X 3 PRN PRN Reason: Pain Discontinued Furosemide [Lasix] 1 tab PO DAILY Follow up with: MARYAM HARRIS MD [Primary Care Provider] -
[2022-12-23] MEDS: Lasix 40 MG/4 ML IV SCH ×2 (09:01→17:08)
[2022-12-23] MEDS ORDERED: BUSPAR 5 MG PO SCH (10:00)
[2022-12-23] MEDS ORDERED: NON-FORMULARY ITEM (Omeprazole [Prilosec] 40 MG Capsule.Dr) PO SCH (10:00)
[2022-12-23] MEDS ORDERED: NON-FORMULARY ITEM (Amlodipine Besylate [Norvasc] 10 MG Tablet) PO SCH (10:00)
[2022-12-23] MEDS ORDERED: Imdur 60MG PO SCH (10:00)
[2022-12-23] MEDS ORDERED: Protonix 40MG Tablet PO SCH (10:00)
[2022-12-23] MEDS ORDERED: MAG-OX 400 PO SCH (10:00)
[2022-12-23] MEDS ORDERED: Flomax 0.4 MG PO SCH (10:00)
[2022-12-23] MEDS ORDERED: Coreg PO SCH (10:00)
[2022-12-23] MEDS ORDERED: NORVASC 5 MG PO SCH (10:00)
[2022-12-23] MEDS ORDERED: Aricept 10 MG PO SCH (10:00)
[2022-12-23 13:47] VITALS: RESP 16
[2022-12-23] MEDS ORDERED: XARELTO 10 MG TABLET PO SCH (18:00)
[2022-12-23 18:51] VITALS: BP 104/55; PULSE 94; TEMP 98.6; O2SAT 98
[2022-12-23] MEDS ORDERED: ROCEPHIN 1 Gm-D5w 50 ml Bag** 1 G/50 ML IVPB IV SCH (22:00)
[2022-12-23] MEDS ORDERED: Pepcid 20 MG PO SCH (22:00)
[2022-12-23] MEDS ORDERED: NON-FORMULARY ITEM (Lovastatin [Lovastatin] 10 MG Tablet) PO SCH (22:00)
[2022-12-23] MEDS ORDERED: Zocor 10MG PO SCH (22:00)
== END 2022-12-23 20:05 | disposition home or self-care (01) ==
LOC: ED 17:44 → MED SURG 22:39
PROVIDERS: ADMIT Student in an Organized Health Care Education/Training Program; ATTEND Student in an Organized Health Care Education/Training Program
DX: I13.0 Hypertensive heart and chronic kidney disease with heart failure and stage 1 through stage 4 chronic kidney disease, or unspecified chronic kidney disease (principal); I50.9 Heart failure, unspecified; N18.9 Chronic kidney disease, unspecified; D64.9 Anemia, unspecified; R77.8 Other specified abnormalities of plasma proteins; R09.02 Hypoxemia; I25.10 Atherosclerotic heart disease of native coronary artery without angina pectoris; I48.91 Unspecified atrial fibrillation; R60.0 Localized edema; Z20.828 Contact with and (suspected) exposure to other viral communicable diseases; Z79.01 Long term (current) use of anticoagulants; Z79.899 Other long term (current) drug therapy
CPT/HCPCS: 0241U; 36000; 36415; 71045; 80053; 83880; 84484; 85025; 93005; 93268; 94760; 94762; 96374; 99285; 99291; G0378; J0696; J1940; Q3014; A9270-GY